=== PATIENT | male | born 1960 | race African-American/Black ===

== ENCOUNTER 2017-08-12 12:23 | Emergency (ER) | payer MEDICAID ==
[~2017-08-12] VITALS: Ht 182.9 cm; Wt 115.9 kg
[~2017-08-12 12:23] MED LIST: LISI-662 PO; METF500T7 PO
[2017-08-12] MEDS ORDERED: ASPI81 PO (12:36)
[2017-08-12] MEDS ORDERED: VALS40TA4 PO (12:36)
[2017-08-12] MEDS ORDERED: GLIP5 PO (12:36)
[2017-08-12 14:22] LABS: BASOPHILS % (AUTO) 0.5 % (0.0-2.0); EOSINOPHILS % (AUTO) 5.9 % (1.0-6.0); HEMATOCRIT 38.1 % (41-53); HEMOGLOBIN 12.9 g/dL (13.5-17.5); LYMPHOCYTES # (AUTO) 2.1 K/uL (1.0-4.8); LYMPHOCYTES % (AUTO) 40.1 % (22.0-44.0); MEAN CORPUSCULAR HEMOGLOBIN 30.8 pg (26.0-34.0); MEAN CORPUSCULAR HGB CONC 33.9 G/dL (31.0-37.0); MEAN CORPUSCULAR VOLUME 91 fL (80-100); MONOCYTES # (AUTO) 0.3 K/uL (0.1-1.0); MONOCYTES % (AUTO) 6.1 % (2.0-9.0); NEUTROPHILS # (AUTO) 2.5 K/uL (1.8-7.7); NEUTROPHILS % (AUTO) 47.4 % (40.0-70.0); PLATELET COUNT (AUTO) 213 K/uL (150-450); RED CELL DISTRIBUTION WIDTH 12.7 % (11.5-14.5); WHITE BLOOD COUNT (AUTO) 5.3 K/uL (4.5-11.0)
[2017-08-12 14:33] LABS: ANION GAP 10 mmol/L (8-16); CARBON DIOXIDE 26 mmol/L (22-29); CHLORIDE 102 mmol/L (98-107); CREATININE 1.23 mg/dL (0.60-1.30); GLOMERULAR FILTR. RATE CALC > 60 mL/min (>60); POTASSIUM 3.2 mmol/L (3.5-5.1); SODIUM SERUM 138 mmol/L (136-145); UREA NITROGEN, BLOOD 14 mg/dL (7-18)
[2017-08-12 14:34] LABS: PROTHROMBIN TIME 10.4 SEC (9.4-11.6)
[2017-08-12 14:51] LABS: B-TYPE NATRIURETIC PEPTIDE 18 pg/mL (0-100)
[2017-08-12 14:58] LABS: ALANINE AMINOTRANSFERASE 38 U/L (12-78); ALBUMIN 3.7 g/dL (3.4-5.0); ASPARTATE AMINOTRANSFERASE 28 U/L (15-37); BILIRUBIN,TOTAL 0.3 mg/dL (0.1-1.0); CREATINE KINASE MB 2.8 ng/mL (0-5); CREATINE KINASE, TOTAL 270 U/L (39-308)
[2017-08-12] MEDS ORDERED: VALSARTAN 80 MG TABLET PO ONE (16:45)
[2017-08-12] MEDS ORDERED: LISINOPRIL 10 MG TABLET PO ONE (16:45)
[2017-08-12] MEDS ORDERED: IOVERSOL 350 MG/ML 150 ML VIAL ONE (17:09)
[2017-08-12] MEDS ORDERED: SODIUM CHLORIDE 0.9% 100 ML ONE (17:09)
[2017-08-12 19:21] VITALS: BP 167/99
[2017-08-13 00:43] LABS: GLUCOSE,POINT OF CARE 348 MG/DL (70-110)
== END 2017-08-12 19:25 | disposition home or self-care (01) ==
LOC: EMS 12:26
DX: M79.89 Other specified soft tissue disorders (principal); R60.9 Edema, unspecified; I10 Essential (primary) hypertension; F15.10 Other stimulant abuse, uncomplicated; E11.9 Type 2 diabetes mellitus without complications
CPT/HCPCS: 36415; 74177; 80053; 82550; 82553; 82962; 83880; 84484; 85025; 85610; 85730; 93005; 93971; 99285; J7050; Q9967

== ENCOUNTER 2025-01-02 16:13 | Emergency (ER) | payer MEDICARE, MEDICAID ==
[~2025-01-02] VITALS: Ht 182.9 cm; Wt 115.9 kg
[~2025-01-02 16:13] MED LIST changes: +ASPI-1450 PO; +GLIP5TAB16 PO; -LISI-662 PO; +LISI-894 PO; +METF-81 PO; -METF500T7 PO; +VALS40TA4 PO
[2025-01-02 16:27] VITALS: TEMP 98.2
[2025-01-02 16:44] LABS: BASOPHILS % (AUTO) 0.4 % (0.0-2.0); EOSINOPHILS % (AUTO) 1.6 % (1.0-6.0); HEMATOCRIT 35.9 % (41-53); HEMOGLOBIN 11.5 g/dL (13.5-17.5); LYMPHOCYTES % (AUTO) 26.8 % (22.0-44.0); MEAN CORPUSCULAR HEMOGLOBIN 29.6 pg (26.0-34.0); MEAN CORPUSCULAR HGB CONC 32.1 G/dL (31.0-37.0); MEAN CORPUSCULAR VOLUME 92 fL (80-100); MONOCYTES # (AUTO) 0.3 K/uL (0.1-1.0); MONOCYTES % (AUTO) 8.6 % (2.0-9.0); NEUTROPHILS # (AUTO) 2.4 K/uL (1.8-7.7); NEUTROPHILS % (AUTO) 62.6 % (40.0-70.0); PLATELET COUNT (AUTO) 151 K/uL (150-450); RED BLOOD CELL COUNT(AUTO) 3.88 MIL/uL (4.50-5.90); WHITE BLOOD COUNT (AUTO) 3.8 K/uL (4.5-11.0)
[2025-01-02 16:53] LABS: ANION GAP 8 mmol/L (8-16); CALCIUM, TOTAL 9.3 mg/dL (8.8-10.5); CARBON DIOXIDE 31 mmol/L (22-29); CHLORIDE 95 mmol/L (98-107); CREATININE 1.16 mg/dL (0.60-1.30); GLOMERULAR FILTR. RATE CALC > 60 mL/min (>60); LIPASE 67 U/L (16-77); POTASSIUM 4.1 mmol/L (3.5-5.1); SODIUM SERUM 134 mmol/L (136-145); UREA NITROGEN, BLOOD 11 mg/dL (7-18)
[2025-01-02 16:55] LABS: GLUCOSE,RANDOM 461 mg/dL (70-110)
[2025-01-02 16:56] LABS: ACETONE,BLOOD NEGATIVE (NEGATIVE)
[2025-01-02 18:00] VITALS: BP 177/108; PULSE 80; RESP 20; O2SAT 98
[2025-01-02] MEDS ORDERED: HYDR25TA2 PO (19:03)
[2025-01-02] MEDS ORDERED: INSU100V45 SQ (19:03)
[2025-01-02] MEDS ORDERED: INSU100I26 SQ (19:03)
[2025-01-02] MEDS ORDERED: HYDR-4069 PO (19:03)
[2025-01-02] MEDS ORDERED: FURO20TA5 PO (19:03)
[2025-01-02] MEDS ORDERED: SEMA0.258 SQ (19:03)
[2025-01-02] MEDS: INSULIN LISPRO 100 UNITS/ML SQ ONE (19:08)
== END 2025-01-02 19:32 | disposition home or self-care (01) ==
LOC: EMS 16:23
DX: E11.65 Type 2 diabetes mellitus with hyperglycemia (principal); I10 Essential (primary) hypertension; F15.90 Other stimulant use, unspecified, uncomplicated; Z98.890 Other specified postprocedural states; Z79.82 Long term (current) use of aspirin; Z79.84 Long term (current) use of oral hypoglycemic drugs; Z79.85 Long-term (current) use of injectable non-insulin antidiabetic drugs; Z79.899 Other long term (current) drug therapy
CPT/HCPCS: 80048; 82009; 82962; 83690; 85025; 99283; J1815